=== PATIENT | male | born 1950 | race Caucasian/White ===

== ENCOUNTER 2016-08-09 09:02 | Inpatient (IN) | payer OTHER ==
[2016-08-09 11:01] LABS: % IMMATURE GRANULYOCYTES 0.2 % (0.0-1.1); ABSOLUTE IMMATURE GRANULOCYTES 0.02 10^3/uL (0.00-0.10); ADD DIFF? NO; ADD MORPH? NO; ADD SCAN? NO; ATYPICAL LYMPHOCYTE FLAG 0 (0-99); FRAGMENT RBC FLAG 0 (0-99); HEMATOCRIT 46.2 % (40.0-51.0); HEMOGLOBIN 15.8 g/dL (13.7-17.5); LEFT SHIFT FLG 0 (0-99); LIPEMIA HEMOLYSIS FLAG 90 (0-99); MEAN CELL HEMOGLOBIN 33.1 pg (27.9-34.1); MEAN CELL HEMOGLOBIN CONCENTR. 34.2 g/dL (32.4-36.7); MEAN CELL VOLUME 96.7 fL (81.5-99.8); MEAN PLATELET VOLUME 9.4 fL (8.7-11.7); PLATELET CLUMPS FLAG 0 (0-99); PLATELET COUNT 263 10^3/uL (150-400); RED BLOOD CELL COUNT 4.78 10^6/uL (4.40-6.38); RED CELL DISTRIBUTION WIDTH 12.7 % (11.5-15.2)
--- NOTE | 2016-08-09 11:05 | GHP ---
[f rep st] PREOP HISTORY AND PHYSICAL DATE OF ADMISSION: 08/14/2016 PROBLEM: Left hip arthritis. HISTORY OF PRESENT ILLNESS: The patient is a 66-year-old man admitted for a left total hip arthropl asty. He has had progressive pain in his left hip. At times, it is so painful it is difficult to w alk. He has been using Aleve, which is somewhat helpful. He complains of anterior hip pain and cedrick in pain. I did his right total hip arthroplasty in August 2014, and he has had a good result. PAST MEDICAL HISTORY: He has cardiac stents inserted in 2012. He was recently seen by Dr. Moses salcido. He has had a stress test within [address] Motta has cleared him for surgery. No histor y of DVT or hepatitis. He has sleep apnea and uses a CPAP machine. CURRENT MEDICATIONS: Amlodipine 5 mg per day. Lisinopril 10 mg per day. Atorvastatin 10 mg per da y. Lasix 20 mg p.r.n. for ankle swelling. He takes Plavix, but he stopped it in preparation for e surgery. ALLERGIES: Drug allergies: None. Metal allergy: None. Latex allergy: None. SOCIAL HISTORY: The patient is retired. He is . He stopped smoking cigarettes 40 years ago . He occasionally drinks alcohol. FAMILY HISTORY: Positive for cancer. PHYSICAL EXAMINATION: GENERAL: He is a healthy-appearing man. VITAL SIGNS: Height 5 feet 9 inches . Weight 220 pounds. BMI 32.5. EYES: Conjunctivae and sclerae are clear. Pupils are round and r eactive. MOUTH: Good oral hygiene. No loose teeth. CHEST: Clear. HEART: Regular rhythm. No m urmurs. EXTREMITIES: Pertinent findings limited to his left hip. He has full hip extension and 11 0 degrees of flexion. External rotation 20 degrees. Internal rotation 0 degrees. Abduction 30 deg vee. IMAGING: His films show degenerative arthritis of the left hip with cartilage space narrowing and p eripheral osteophytes. His right total hip looks excellent. IMPRESSION ON ADMISSION: 1. Left hip degenerative arthritis. He is prepared for a left total hip arthroplasty. 2. Two years status post successful right total hip arthroplasty. 3. History of coronary artery disease with stent insertion in 2012. 4. Treatment for hypertension and elevated cholesterol. 5. Sleep apnea. He will undergo a left total hip arthroplasty. The surgery has been described to him including the risks, complications, expectations, and recovery time. All his questions have been answered, and he consents to surgery. I have discussed with him the issues of dislocation, leg length inequality, i nfection, and revision surgery. There is a very, very small risk of sciatic nerve injury. I have a lso advised him that with bilateral procedures there can be mild [id number] differences during the recovery and even with the final result. All his questions have been answered. /[id number]/MODL
[2016-08-14] MEDS ORDERED: TRANEXAMIC ACID 2,000 MG in NS 100 ML IV ONE (06:00)
[2016-08-14] MEDS ORDERED: CHLORHEXIDINE GLUC HIBICLENS 118 ML BTL TP ONE (06:00)
[2016-08-14] MEDS ORDERED: ACETAMINOPHEN 325 MG TAB PO ONE (06:00)
[2016-08-14] MEDS ORDERED: FAMOTIDINE 20 MG TAB PO ONE (06:00)
[2016-08-14] MEDS ORDERED: ROPI/epiNEPH/KETOROLAC JOINT COCKTAIL IU ONE (06:00)
[2016-08-14] MEDS ORDERED: DEXAMETHASONE 4 MG/ML VIAL IVP ONE (06:00)
[2016-08-14] MEDS ORDERED: POVIDONE-IODINE 20 ML in SODIUM CL IRRIG SOLUTION 500 ML IRR ONE (06:00)
[2016-08-14] MEDS ORDERED: CEFAZOLIN 2 GM/DEXTR 100 ML IV ONE (06:00)
[2016-08-14] MEDS ORDERED: LIDOCAINE 1% 2 ML INJ ONE (06:05)
[2016-08-14] MEDS ORDERED: CEFAZOLIN 2 GM/DEXTROSE/100 ML BAG IV ONE (06:11)
[2016-08-14] MEDS ORDERED: DEXAMETHASONE 4 MG/ML VIAL ONE (06:11)
[2016-08-14] MEDS ORDERED: FAMOTIDINE 20 MG TAB ONE (06:11)
[2016-08-14] MEDS ORDERED: LIDOCAINE 1% 5 ML SDV ID PRN (06:18)
[2016-08-14] MEDS ORDERED: LR 1,000 ML IV ONE (06:18)
[2016-08-14] MEDS ORDERED: SKIN ADHESIVE (DERMABOND) 1 EACH TP ONE (06:36)
[2016-08-14] MEDS ORDERED: ceFAZolin 1 GM/5 ML SYR ONE (06:37)
[2016-08-14] MEDS ORDERED: fentaNYL 100 MCG/2 ML INJ ONE ×2 (07:00→09:03)
[2016-08-14] MEDS ORDERED: PROPOFOL/EMULSION 500 MG/50 ML BOTTLE IV ONE ×2 (07:04→07:55)
[2016-08-14] MEDS ORDERED: MIDAZOLAM 2 MG/2 ML VIAL ONE (07:04)
--- NOTE | 2016-08-14 08:41 | POSTOPPROG ---
Post Op Note Date of Operation: 08/14/16 Surgeon: Lincoln Esposito School Librarian: Venus/Davin Anesthesiologist: Raul Anesthesia: IV Sedation, Spinal Post-op Diagnosis: right hip arthritis Procedure: R GIGI Inf/Abcess present in the surg proc area at time of surgery?: No EBL: 100-500
[2016-08-14] MEDS ORDERED: METOCLOPRAMIDE 10 MG/2 ML VIAL IVP PRN (08:43)
[2016-08-14] MEDS ORDERED: ONDANSETRON 4 MG/2 ML VIAL IVP PRN (08:43)
[2016-08-14] MEDS ORDERED: BISACODYL 10 MG SUPP PR PRN (08:43)
[2016-08-14] MEDS ORDERED: NS 500 ML IV PRN (08:43)
[2016-08-14] MEDS ORDERED: PROMETHAZINE HCL 25 MG SUPPR PR PRN (08:43)
[2016-08-14] MEDS ORDERED: CYCLOBENZAPRINE 10 MG TAB PO PRN (08:43)
[2016-08-14] MEDS ORDERED: PHARMACY PAIN CONSULT 1 EA MISC PRN (08:43)
[2016-08-14] MEDS ORDERED: diphenhydrAMINE 25 MG CAP PO PRN (08:43)
[2016-08-14] MEDS ORDERED: ONDANSETRON DISINTEGRATING 4 MG TAB PO PRN (08:43)
[2016-08-14] MEDS ORDERED: DIPHENOXYLATE/ATROPINE LOMOTIL 1 TAB PO PRN (08:43)
[2016-08-14] MEDS ORDERED: traMADol 50 MG TAB PO PRN (08:43)
[2016-08-14] MEDS ORDERED: MAGNESIUM HYDROXIDE 30 ML UDCUP PO PRN (08:43)
[2016-08-14] MEDS ORDERED: POLYETHYLENE GLYCOL 3350 17 GM PKT PO PRN (08:43)
[2016-08-14] MEDS ORDERED: LACTULOSE 20 GM/30 ML UDCUP PO PRN (08:43)
[2016-08-14] MEDS ORDERED: TEMAZEPAM 15 MG CAP PO PRN (08:43)
--- NOTE | 2016-08-14 08:43 | POSTOPPROG ---
Post Op Note Date of Operation: 08/14/16 Surgeon: Lincoln Esposito Cycle Specialist: Eugene Anesthesiologist: Raul Anesthesia: IV Sedation, Spinal Post-op Diagnosis: corrected left hip arthritis Procedure: corrected left GIGI Inf/Abcess present in the surg proc area at time of surgery?: No EBL: 100-500
[2016-08-14] MEDS ORDERED: LR 1,000 ML IV SCH (09:00)
--- NOTE | 2016-08-14 09:32 | GOP ---
[f rep st] OPERATIVE REPORT DATE OF OPERATION: 08/14/2016 SURGEON: Lincoln Esposito MD NATURALIST: DOREEN Acuna RN ANESTHESIA: Combination of Marcaine, spinal, and IV sedation. ANESTHESIOLOGIST: Dr. Franco Carter. PREOPERATIVE DIAGNOSIS: Left hip severe arthritis. POSTOPERATIVE DIAGNOSIS: Left hip severe arthritis. PROCEDURE PERFORMED: Left total hip arthroplasty, Oxinium femoral head on highly cross-linked polye thylene cup. FINDINGS: ESTIMATED BLOOD LOSS: About 300 mL. The sponge and needle counts were correct on 2 occasions. I used a Sr and Nephew R3 hemispherical solid-backed acetabular shell with an outside diameter of 56 mm. The liner was a Sr and Nephew R3 flush highly cross-linked liner with an inside diameter of 36 mm. The femoral component was a standard offset Sr and Nephew Synergy stem in a size 13 a nd press-fit. The femoral head was a Sr and Nephew Oxinium head with a +4 mm neck length and a 3 6 mm outside diameter. Oskar Donovan and Kimberly Aguirre acted as surgical assistants. Their assistance was a medical necess ity. DESCRIPTION OF PROCEDURE: The patient was given 2 g of IV Ancef preoperatively within 60 minutes of surgery. He also received IV tranexamic acid at a dose of 20 mg/kg. [facility] and given spinal anesthesia with Marcaine by Dr. Carter. He was then placed supine and given IV sedation. A Magaña catheter was not used. A RITU stocking and SCD were applied to the nono perative leg. He was rolled to the right lateral decubitus position. The position was secured with the pegboard table attachment. An axillary roll was used and all pressure points were carefully pa dded. I was careful to lock his pelvis in a rigid vertical position. His perineum was isolated wit h plastic adhesive drapes. The left hip and left lower extremity were prepped with ChloraPrep. The y were draped free using sterile sheets, stockinette, and Ioban plastic drapes. The World [employer] Organization time-out was performed to verify the correct surgical side and the cor rect patient identity. The [place] time-out was also performed. I made a 5-inch straight oblique posterolateral hip skin incision. Subcutaneous tissue was sharply divided and hemostasis was obtained using electrocautery. His fascia daniela was identified and split along the axis of its fibers. I then curved posteriorly and proximally and split the fascia of the gluteus dave, and bluntly split the muscle fibers in line with their orientation. The Charnley s elf-retaining retractor was inserted. His sciatic nerve was located, partially exposed and protecte d throughout the procedure. The external rotators and the posterior hip capsule were divided as sep arate layers at the base of the femoral neck, tagged and reflected posteriorly. A smooth 8-inch Naif inmann pin was inserted vertically into the ilium superior to the acetabulum. An 8-inch drill bit w as inserted vertically into the greater trochanter and parallel to the first pin. The distance betw een the 2 was measured for leg length reference. His femoral head was dislocated posteriorly. Chastity re degenerative changes were present on the femoral head. The femoral neck was osteotomized at the appropriate level and inclination. I was careful to preserve all the posterior capsule and most of the anterior capsule. The remnant o f his damaged labrum was completely excised. I prepared the femur first. This allowed me to hand deicer element winder the amount of natural femoral neck anteversion . This, in turn, allowed me to later determine the correct amount of cup anteversion. He had appro ximately 10 or 12 degrees of femoral anteversion. The canal was opened laterally with a box chisel. I reamed and broached sequentially up to size 13. I used a size 13 broach as a trial stem. I was careful to lateralize adequately. Appropriate retractors were inserted to expose the acetabulum. The acetabulum was reamed sequential ly up to 55 mm. I selected a 56 mm Sr and Nephew R3 solid-backed hemispherical shell. This was tapped securely into place in the proper degree of inclination and anteversion. I used the transver se acetabular ligament and other acetabular bony landmarks to help me properly orient the cup. Supp lemental screw fixation was not necessary. I inserted a screw-in metal dome hole plug. I performed a series of trial reductions to determine length and stability. I concluded that the si ze 13 stem with a +4 mm neck length and a 36 mm head with a flush trial liner gave me the proper com bination of appropriate length and good anterior and posterior stability. I recognized that I was l engthening him a couple of millimeters; however, I felt like the +4 mm neck length gave me the amoun t of stability I wanted. The flush Sr and Nephew R3 highly cross-linked polyethylene liner was inserted and tapped securel y into place. I selected a Sr and Nephew Synergy stem in a size 13 with standard offset. This w as inserted press-fit and was very tight. I did 1 final trial reduction and confirmed that the +4 m m neck length with a 36 mm head was the proper combination. I selected a Sr and Nephew Oxinium h ead with an outside diameter of 36 mm and a neck length of +4 mm. This was tapped securely onto the clean trunnion. The acetabulum was irrigated and cleaned and the hip was reduced 1 final time. He had excellent anterior and posterior stability and appropriate length. 40 mL of the joint anesthetic cocktail was injected into the capsule, the deep musculature, and subc utaneous tissues around the skin edges. The joint was thoroughly irrigated 1 final time with a dilu te Betadine solution. His sciatic nerve was reinspected and looked unharmed. The external rotators and the posterior hip capsule were repaired in separate layers with #[address] ill holes in the greater trochanter. This provided a very strong posterior capsular and external ro tator repair. The fascia daniela was repaired first with several interrupted [id number] #2 FiberW darlene sutures followed by a running #2 barbed Ethicon Stratafix PDO suture. Subcutaneous tissues were closed with a running 0 barbed Ethicon Stratafix Monoderm suture. The skin was closed with a runni ng 3-0 barbed Ethicon Stratafix Monoderm subcuticular suture. The skin edges were reapproximated an d sealed with Dermabond glue. The wound was covered with a strip of Telfa, and everything was held in place with a piece of clear plastic Tegaderm. A long-leg RITU stocking and SCD were applied to his left lower extremity. He wore a stocking and SC D on the opposite leg during the procedure. An abduction pillow was placed between his knees. He w as awakened from anesthesia and rolled to the supine position on his [facility]. Taken to PACU in satisfactory condition. There were no recognized intraoperative complications. /[id number]/MODL
[2016-08-14] MEDS: TRANEXAMIC ACID 650 MG TAB PO SCH ×4 (09:44→21:14)
[2016-08-14] MEDS ORDERED: KETOROLAC 30 MG/1 ML SDV IVP PRN (11:22)
[2016-08-14] MEDS: ACETAMINOPHEN 325 MG TAB PO SCH ×3 (11:28→23:32)
[2016-08-14] MEDS: oxyCODONE IR 5 MG TAB PO PRN ×2 (11:29→20:42)
[2016-08-14] MEDS: ATORVASTATIN CALCIUM 10 MG TAB PO SCH (11:32)
[2016-08-14] MEDS: MULTIVITAMINS 1 EACH TAB PO SCH (11:33)
[2016-08-14] MEDS: SENNOSIDES/DOCUSATE SODIUM TAB PO SCH ×2 (11:33→20:11)
[2016-08-14] MEDS: FERROUS SULFATE 140 MG TAB.ER PO SCH (11:33)
[2016-08-14] MEDS: LISINOPRIL 40 MG TAB PO SCH (11:33)
[2016-08-14] MEDS: ceFAZolin 2 GM/DEXTROSE 100 ML IV SCH ×2 (14:00→21:14)
[2016-08-14] MEDS: ASPIRIN 325 MG TAB PO SCH (20:10)
[2016-08-14] MEDS: FAMOTIDINE 20 MG TAB PO SCH (20:11)
[2016-08-15 04:57] LABS: HEMOGLOBIN 12.5 g/dL (13.7-17.5)
[2016-08-15] MEDS: ACETAMINOPHEN 325 MG TAB PO SCH (05:10)
[2016-08-15 07:38] VITALS: BP 132/74; PULSE 78; RESP 14; TEMP 97.7; O2SAT 96
[2016-08-15] MEDS: ATORVASTATIN CALCIUM 10 MG TAB PO SCH (08:55)
[2016-08-15] MEDS: FERROUS SULFATE 140 MG TAB.ER PO SCH (08:55)
[2016-08-15] MEDS: ASPIRIN 325 MG TAB PO SCH (08:55)
[2016-08-15] MEDS: LISINOPRIL 40 MG TAB PO SCH (08:55)
[2016-08-15] MEDS: SENNOSIDES/DOCUSATE SODIUM TAB PO SCH (08:55)
[2016-08-15] MEDS: FAMOTIDINE 20 MG TAB PO SCH (08:57)
[2016-08-15] MEDS: MULTIVITAMINS 1 EACH TAB PO SCH (08:57)
[2016-08-15] MEDS: TRANEXAMIC ACID 650 MG TAB PO SCH (08:58)
--- NOTE | 2016-08-15 12:02 | SOAPPROG ---
SOAP Progress Note Assessment/Plan: Assessment: Jarrett left this morning before I could see him after surgery. He did well with PT and was anxious to go. Films look good. H/H is good. Plan: DC Outpatient PT 08/15/16 12:01 Objective: Vital Signs Temp Pulse Resp BP Pulse Ox 36.5 C 78 14 132/74 H 96 08/15/16 07:29 08/15/16 07:29 08/15/16 07:29 08/15/16 08:57 08/15/16 07:29 Laboratory Results 08/15/16 04:36 08/14/16 08/15/16 08/16/16 05:59 05:59 05:59 Intake Total 3485 Output Total 1075 Balance 2410 ICD10 Worksheet Patient Problems: Problems Problem Status Onset Osteoarthritis of left hip Acute Primary osteoarthritis of right hip Acute
--- NOTE | 2016-08-15 12:21 | GDS ---
[f rep st] DISCHARGE SUMMARY ADMISSION DIAGNOSIS: Left hip severe degenerative arthritis. DISCHARGE DIAGNOSIS: Left hip severe degenerative arthritis. OPERATION PERFORMED: 08/14/2016, a left total hip arthroplasty. POSTOPERATIVE COMPLICATIONS: None. CONDITION ON DISCHARGE: Improved. DESCRIPTION OF HOSPITAL COURSE: The patient was admitted to the hospital on the morning of surgery. His admission CBC was normal. The same day under a combination of Marcaine, spinal, and IV sedati on, he underwent a left total hip arthroplasty. Postoperatively, he was treated with multimodal DVT prophylaxis including aspirin and early mobilization. On the 1st postoperative day, his hemoglobin and hematocrit were 12.5 and 37.0. He made excellent progress with ambulation and by the time of d ischarge, he was afebrile and he was independent walking and doing stairs. DISPOSITION: The patient discharged to his home. DISCHARGE INSTRUCTIONS: He will have outpatient physical therapy. He may progress to full weightbe aring on the left as tolerated. Use an abduction pillow in bed for 3 weeks. Use RITU stockings for 1 week. He has prescriptions for tramadol and oxycodone for pain control. Continue aspirin 325 mg p.o. daily for 21 days. I will see him back in the office on August 31, 2016. If there any problems , he is to call me at the office. /[id number]/MODL
== END 2016-08-15 10:36 | disposition home or self-care (01) | DRG 470 ==
LOC: UNDOADMIN 09:02 → F3N 09:02
PROVIDERS: ADMIT Orthopaedic Surgery; ATTEND Orthopaedic Surgery
PROC: 0SRB0JZ Replacement of Left Hip Joint with Synthetic Substitute, Open Approach (ICD-10-PCS; principal; 2016-08-14 07:15)
DX: M16.12 Unilateral primary osteoarthritis, left hip (principal); Z95.5 Presence of coronary angioplasty implant and graft; G47.33 Obstructive sleep apnea (adult) (pediatric); Z96.641 Presence of right artificial hip joint; I10 Essential (primary) hypertension; E78.00 Pure hypercholesterolemia, unspecified
CPT/HCPCS: 97110-GP; 97116-GP; 97161-GP; 97165-GO; 97530-GP; G8978-GP-CJ; G8979-GP-CI; G8980-GP-CI; G8987-GO-CI; G8988-GO-CI; G8989-GO-CI; J0171; J0690; J1100; J1885; J2250; J2704; J2795; J3010

== ENCOUNTER → 2017-02-18 | Outpatient (CLI) | payer OTHER | LOC: FCPNEURO 20:00 | PROVIDERS: ATTEND Internal Medicine Sleep Medicine | DX: G47.33 Obstructive sleep apnea (adult) (pediatric) (principal); G47.61 Periodic limb movement disorder ==

== ENCOUNTER → 2017-08-10 | Outpatient (CLI) | payer OTHER | LOC: FIMAGING 08:42 | PROVIDERS: ATTEND Orthopaedic Surgery | DX: M25.561 Pain in right knee (principal); M23.221 Derangement of posterior horn of medial meniscus due to old tear or injury, right knee; M24.10 Other articular cartilage disorders, unspecified site; M25.461 Effusion, right knee; M71.21 Synovial cyst of popliteal space [Baker], right knee ==

== ENCOUNTER 2017-10-05 08:55 | Emergency (ER) | payer OTHER ==
--- NOTE | 2017-10-05 09:06 | CPEKG ---
Heart Rate: 62 RR Interval: 968 P-R Interval: 156 QRSD Interval: 86 QT Interval: 448 QTC Interval: 455 P [place]: 72 QRS [place]: 56 T Wave [place]: 53 EKG Severity - NORMAL ECG - EKG Impression: SINUS RHYTHM Electronically Signed By: Hardy Batista 06-Oct-2017 13:48:35
[2017-10-05] MEDS ORDERED: HYDROmorphONE/DILAUDID 2 MG/ML INJ IVP ONE (09:14)
[2017-10-05] MEDS ORDERED: LORazepam 2 MG/ML INJ IVP ONE (09:14)
[2017-10-05] MEDS ORDERED: NS 1,000 ML IV ONE (09:14)
--- NOTE | 2017-10-05 09:19 | EDPHY ---
H & P Stated Complaint: CP, nausea since last night Time Seen by Provider: 10/05/17 09:06 HPI/ROS: CHIEF COMPLAINT: Chest and abdominal pain HISTORY OF PRESENT ILLNESS: Patient is a 67-year-old man who is 3 days status post right knee arthroscopic and meniscus repair. He has a history of coronary artery disease with 3 stents in 2012. Also history of peptic ulcer disease and is on ranitidine. He states that yesterday he was constipated and at 1 point threw up. Overnight he had an episode of diarrhea. No fever. No blood. Around 4:00 a.m. He developed some lower abdominal pain that then radiated up to his chest and is now in his epigastric region. He is extremely tender to palpation in his epigastric region. He did have alcohol last night but denies being heavy drinker. He denies history of pancreatitis or hepatitis or biliary disease. His states he does also have a history of kidney stones. He denies flank pain or dysuria. No significant leg pain or swelling. REVIEW OF SYSTEMS: Constitutional: denies: chills, fever, recent illness, recent injury EENTM: denies: blurred vision, double vision, nose congestion Respiratory: denies: cough, shortness of breath Cardiac: See HPI denies: irregular heart rate, lightheadedness, palpitations Gastrointestinal/Abdominal: denies: blood streaked stools Genitourinary: denies: dysuria, frequency, hematuria, pain Musculoskeletal: denies: joint pain, muscle pain Skin: denies: lesions, rash, jaundice, bruising Neurological: denies: headache, numbness, paresthesia, tingling, dizziness, weakness Hematologic/Lymphatic: denies: blood clots, easy bleeding, easy bruising Immunologic/allergic: denies: HIV/AIDS, transplant EXAM: GENERAL: Moderate distress. HEAD: Atraumatic, normocephalic. EYES: Pupils equal round and reactive to light, extraocular movements intact, sclera anicteric, conjunctiva are normal. ENT: TMs normal, nares patent, oropharynx clear without exudates. Moist mucous membranes. NECK: Normal range of motion, supple without lymphadenopathy or JVD. LUNGS: Breath sounds clear to auscultation bilaterally and equal. No wheezes rales or rhonchi. HEART: Regular rate and rhythm without murmurs, rubs or gallops. ABDOMEN: Exquisite tenderness even to brushing of the skin of his epigastric region. normoactive bowel sounds. No masses appreciated. BACK: No CVA tenderness, no spinal tenderness, step-offs or deformities EXTREMITIES: Normal range of motion, no pitting or edema. No clubbing or cyanosis. NEUROLOGICAL: Cranial nerves II through XII grossly intact. Normal speech, normal gait. 5/5 strength, normal movement in all extremities, normal sensation PSYCH: Normal mood, normal affect. SKIN: Warm, dry, normal turgor, no visible rashes or lesions. Source: Patient Exam Limitations: No limitations - Medical/Surgical History Hx Asthma: No Hx Chronic Respiratory Disease: No Hx Diabetes: No Hx Cardiac Disease: Yes Hx Renal Disease: No Hx Cirrhosis: No Hx Alcoholism: No Hx HIV/AIDS: No Hx Splenectomy or Spleen Trauma: No Other PMH: R knee surgery 10/01/17, R rotator cuff 2013, cardiac stents x 2 2012 , sleep apnea, HTN, back surgery L 3 to5 multiiple orthopedic surgeries, head injuries 1979 - Family History Significant Family History: No pertinent family hx - Social History Smoking Status: Former smoker Alcohol Use: Occasionally Drug Use: None Constitutional: Initial Vital Signs Temperature (C) 36.7 C 10/05/17 08:59 Heart Rate 62 10/05/17 08:59 Respiratory Rate 18 10/05/17 08:59 Blood Pressure 145/87 H 10/05/17 08:59 O2 Sat (%) 99 10/05/17 08:59 O2 Delivery Mode Room Air O2 (L/minute) 2 Allergies/Adverse Reactions: No Known Allergies Allergy (Unverified 08/24/14 10:05) Home Medications: Medication Instructions Recorded Atorvastatin Calcium [Lipitor 10 10 mg PO DAILY 08/19/14 mg (*)] Lisinopril [Zestril 40 mg (*)] 40 mg PO DAILY 08/19/14 Ranitidine HCl [Zantac] 300 mg PO BID 08/19/14 amLODIPine BESYLATE [Norvasc 10 mg 10 mg PO DAILY 08/19/14 (*)] Multivitamins [Multivitamin (*)] 1 each PO DAILY 08/07/16 Medical Decision Making - Diagnostics EKG Interpretation: An EKG obtained and was read and documented in trace view. Please see trace view for full reading and report. Sinus rhythm, no acute ischemic changes Imaging Results: Imaging Impressions Abdomen CT 10/05/17 09:15 Impression: 1. Mild sigmoid diverticulosis without diverticulitis. 2. L2-L3 degenerative disk disease with marked intervertebral disk height loss. Results called to Dr. Meño Otto at 11:00 AM. Chest/Thorax CTA 10/05/17 09:15 Impression: Negative CT examination of the chest for acute pulmonary thromboembolic disease. Results called to Dr. Meño Otto at 11:00 AM at the time of the interpretation. Imaging: Discussed imaging studies w/ machine scallop cutter Radiologist ED Course/Re-evaluation: 11:00 a.m. we discussed the imaging and lab results. Patient and are very much reassured. They feel like he has food poisoning. They state that this is happened before. He is feeling completely better after being medicated here in the ER. They declined further workup or observation and are eager to go home. They have Zofran at home. I will give them a dose prior to discharge as well. His abdominal exam was now benign. We discussed indications for returning. Differential Diagnosis: Partial list of the Differential diagnosis considered include but were not limited to; gastritis, food poisoning, PE, dissection, pancreatitis, biliary disease and although unlikely based on the history and physical exam, I also considered perforation, ischemia, obstruction. I discussed these differential diagnoses and the plan with the patient as well as the usual and expected course. The patient understands that the diagnosis is provisional and that in medicine we are not always correct and that further workup is often warranted. Usual and customary warnings were given. All of the patient's questions were answered. The patient was instructed to return to the emergency department should the symptoms at all worsen or return, otherwise to followup with the physician as we discussed. - Data Points Laboratory Results: Laboratory Results 10/05/17 09:17 10/05/17 09:17 10/05/17 10/05/17 10/05/17 09:17 09:17 09:17 WBC 12.70 10^3/uL H 10^3/uL (3.80-9.50) RBC 4.50 10^6/uL 10^6/uL (4.40-6.38) Hgb 15.0 g/dL g/dL (13.7-17.5) Hct 43.5 % % (40.0-51.0) MCV 96.7 fL fL (81.5-99.8) MCH 33.3 pg pg (27.9-34.1) MCHC 34.5 g/dL g/dL (32.4-36.7) RDW 13.0 % % (11.5-15.2) Plt Count 238 10^3/uL 10^3/uL (150-400) MPV 9.0 fL fL (8.7-11.7) Neut % (Auto) 83.2 % H % (39.3-74.2) Lymph % (Auto) 6.7 % L % (15.0-45.0) [place] % (Auto) 9.0 % % (4.5-13.0) Eos % (Auto) 0.2 % L % (0.6-7.6) Baso % (Auto) 0.3 % % (0.3-1.7) Nucleat RBC Rel Count 0.0 % % (0.0-0.2) Absolute Neuts (auto) 10.58 10^3/uL H 10^3/uL (1.70-6.50) Absolute Lymphs (auto) 0.85 10^3/uL L 10^3/uL (1.00-3.00) Absolute Monos (auto) 1.14 10^3/uL H 10^3/uL (0.30-0.80) Absolute Eos (auto) 0.02 10^3/uL L 10^3/uL (0.03-0.40) Absolute Basos (auto) 0.04 10^3/uL 10^3/uL (0.02-0.10) Absolute Nucleated RBC 0.00 10^3/uL 10^3/uL (0-0.01) Immature Gran % 0.6 % % (0.0-1.1) Immature Gran # 0.07 10^3/uL 10^3/uL (0.00-0.10) PT 13.5 SEC SEC (12.0-15.0) INR 1.01 (0.83-1.16) APTT 23.9 SEC SEC (23.0-38.0) Sodium 141 mEq/L mEq/L (135-145) Potassium 4.5 mEq/L mEq/L (3.3-5.0) Chloride 102 mEq/L mEq/L (97-110) Carbon Dioxide 24 mEq/l mEq/l (22-31) Anion Gap 15 mEq/L mEq/L (8-16) BUN 17 mg/dL mg/dL (7-23) Creatinine 0.9 mg/dL mg/dL (0.7-1.3) Estimated GFR > 60 Glucose 113 mg/dL H mg/dL (70-100) Calcium 9.1 mg/dL mg/dL (8.5-10.4) Total Bilirubin 0.8 mg/dL mg/dL (0.1-1.4) Conjugated Bilirubin 0.4 mg/dL mg/dL (0.0-0.5) Unconjugated Bilirubin 0.4 mg/dL mg/dL (0.0-1.1) AST 37 IU/L IU/L (17-59) ALT 38 IU/L IU/L (21-72) Alkaline Phosphatase 85 IU/L IU/L (38-126) Troponin I < 0.012 ng/mL ng/mL (0.000-0.034) Total Protein 6.7 g/dL g/dL (6.3-8.2) Albumin 4.1 g/dL g/dL (3.5-5.0) Lipase 78 IU/L IU/L (23-300) Medications Given: Discontinued Medications Hydromorphone HCl (Dilaudid) 1 mg IVP EDNOW ONE Stop: 10/05/17 09:15 Last Admin: 10/05/17 09:21 Dose: 1 mg Sodium Chloride (Ns) 1,000 mls @ 0 mls/hr IV EDNOW ONE; Wide Open PRN Reason: Protocol Stop: 10/05/17 09:15 Last Admin: 10/05/17 09:21 Dose: 1,000 mls Lorazepam (Ativan Injection) 0.5 mg IVP EDNOW ONE Stop: 10/05/17 09:15 Last Admin: 10/05/17 09:21 Dose: 0.5 mg Ondansetron HCl (Zofran) 4 mg IVP EDNOW ONE Stop: 10/05/17 11:03 Last Admin: 10/05/17 11:09 Dose: 4 mg Departure - Departure Disposition: Home, Routine, Self-Care Clinical Impression: Abdominal pain Qualifiers: Abdominal location: epigastric Qualified Code(s): R10.13 - Epigastric pain Condition: Fair Instructions: Acute Abdominal Pain (ED) Referrals: Samira Blanco PA [Primary Care Provider] - As per Instructions
[2017-10-05 09:23] LABS: PLATELET COUNT 238 10^3/uL (150-400)
[2017-10-05 09:31] LABS: INR 1.01 (0.83-1.16); PROTIME(PATIENT) 13.5 SEC (12.0-15.0)
[2017-10-05] MEDS ORDERED: IOPAMIDOL (ISOVUE 370) 100 ML BTL IV ONE (09:42)
[2017-10-05 10:24] VITALS: BP 136/70
[2017-10-05] MEDS ORDERED: ONDANSETRON 4 MG/2 ML VIAL IVP ONE (11:02)
== END 2017-10-05 11:15 | disposition home or self-care (01) ==
DX: R10.13 Epigastric pain (principal); E86.9 Volume depletion, unspecified; I10 Essential (primary) hypertension; Z87.891 Personal history of nicotine dependence
CPT/HCPCS: 71275; 74177; 93005; 96361; 96374; 96375; 99285; J1170; J2060; J2405; Q9967

== ENCOUNTER → 2018-02-25 | Outpatient (CLI) | payer OTHER | LOC: BHFA 13:00 | PROVIDERS: ATTEND Internal Medicine Cardiovascular Disease | DX: Z01.818 Encounter for other preprocedural examination (principal); I25.10 Atherosclerotic heart disease of native coronary artery without angina pectoris | CPT/HCPCS: 78452; 93017; A9500; J2785 ==

== ENCOUNTER 2018-03-10 08:30 | Inpatient (IN) | payer OTHER ==
--- NOTE | 2018-03-18 08:25 | POSTANESTH ---
Post Anesthetic Evaluation Cardiovascular Status: Normal, Stable Respiratory Status: Normal, Stable Level of Consciousness/Mental Status: Can Participate in Eval, Moderately Sleepy Pain Control: Adequate, Prn Tx Ordered Nausea/Vomiting Control: Adequate, Prn Tx Ordered Complications Possibly Related to Anesthesia: None Noted (Pt moves all extremities to command.)
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
[2018-03-18] MEDS ORDERED: LR 1,000 ML IV ONE (09:03)
[2018-03-18] MEDS ORDERED: LIDOCAINE/EPINEPHRINE 0.5% 50 ML MDV ONE (09:12)
[2018-03-18] MEDS ORDERED: LIDOCAINE 0.5% 50 ML SDV ONE ×2 (09:15→12:47)
[2018-03-18] MEDS ORDERED: BUPIVACAINE/EPI 0.5% 30 ML SDV ONE (09:51)
[2018-03-18] MEDS ORDERED: BACITRACIN 50,000 UNITS/10 ML SYR IRR ONE (09:52)
[2018-03-18] MEDS ORDERED: VANCOMYCIN 1 GM VIAL ONE (09:52)
[2018-03-18] MEDS ORDERED: ceFAZolin 2 GM/DEXTROSE 100 ML IV ONE (10:39)
[2018-03-18] MEDS ORDERED: TRANEXAMIC ACID 1,000 MG in NS 100 ML IV ONE (10:39)
[2018-03-18] MEDS ORDERED: DEXAMETHASONE 4 MG/ML VIAL ONE (10:49)
[2018-03-18] MEDS ORDERED: ROCURONIUM 50 MG/5 ML VIAL ONE (10:49)
[2018-03-18] MEDS ORDERED: PROPOFOL/EMULSION 500 MG/50 ML BOTTLE IV ONE ×3 (10:49→12:26)
[2018-03-18] MEDS ORDERED: LIDOCAINE 2% 2 ML INJ ONE (10:49)
[2018-03-18] MEDS ORDERED: ePHEDrine SULFATE 25 MG/5 ML SYR ONE ×2 (11:39→12:07)
[2018-03-18] MEDS ORDERED: VASOPRESSIN 20 UNIT/ML VIAL ONE (12:13)
[2018-03-18] MEDS ORDERED: ONDANSETRON DISINTEGRATING 4 MG TAB PO PRN (13:05)
[2018-03-18] MEDS ORDERED: MAGNESIUM HYDROXIDE 30 ML UDCUP PO PRN (13:05)
[2018-03-18] MEDS ORDERED: ONDANSETRON 4 MG/2 ML VIAL IVP PRN (13:05)
[2018-03-18] MEDS ORDERED: BISACODYL 10 MG SUPP PR PRN (13:05)
[2018-03-18] MEDS ORDERED: POLYETHYLENE GLYCOL 3350 17 GM PKT PO PRN (13:05)
[2018-03-18] MEDS ORDERED: diphenhydrAMINE 25 MG CAP PO PRN (13:05)
[2018-03-18] MEDS ORDERED: LACTULOSE 20 GM/30 ML UDCUP PO PRN (13:05)
[2018-03-18] MEDS ORDERED: FAMOTIDINE 20 MG TAB PO PRN ×2 (13:05→21:00)
[2018-03-18] MEDS ORDERED: fentaNYL 100 MCG/2 ML INJ IVP PRN (13:16)
[2018-03-18] MEDS ORDERED: ALBUTEROL 3 ML DEYVIAL IH PRN (13:16)
[2018-03-18] MEDS ORDERED: NALOXONE HCL 0.4 MG/ML INJ IVP PRN (13:16)
[2018-03-18] MEDS ORDERED: PROMETHAZINE HCL 25 MG/ML INJ IVP PRN (13:16)
[2018-03-18] MEDS ORDERED: LR 500 ML IV PRN (13:16)
[2018-03-18] MEDS ORDERED: ACETAMINOPHEN 500 MG TAB PO PRN (13:16)
[2018-03-18] MEDS ORDERED: ONDANSETRON 4 MG/2 ML VIAL ONE (13:18)
--- NOTE | 2018-03-18 14:09 | SUROPNOTE ---
[facility] Operative Report - Surgery Date: 03/18/18 Pre-operative Diagnosis: Lumbar Spinal Stenosis Post-operative Diagnosis: Same Procedure: L1-4 Open Lumbar revision Laminectomy and Decompression Use of intra-operative fluoroscopy Use of a surgical microscope Surgeon: Lui Hampton MD Wharf Tender: Jane Woodson PA-C Anesthesia: General endotracheal anesthesia Findings: As expected lumbar spinal stenosis Estimated Blood Loss: 100mL Drains: Hemovac sewn to skin Specimens: None Complications: None Condition: Transferred to PACU in stable condition. Implants: None Indications: This patient was seen and examined by me and diagnosed with lumbar spinal stenosis. I have explained all options of treatment for the patient, and the patient has elected to proceed with operative management. I have explained all risks, benefits, and alternatives of the proposed procedure. The risks that we have discussed include , blindness, nerve damage, infection, dural tear, failure of surgery to alleviate pre-operative symptoms, and possible need for further operation. In addition to the aforementioned procedure, I discussed with the patient that other procedures may be indicated during the course of surgery that would be considered in the patients best interest. The patient expressed understanding of this. Pre-operative: The proposed incision site was marked in the pre-operative holding area by me. The patient was then taken to the operating room in stable condition. Following smooth induction of general anesthesia, the patient was positioned prone on a Cisco table in mild reverse Trendelenburg with all down surfaces well-padded. The patient was then prepped and draped in the usual sterile fashion. Pre- operative antibiotics were administered within one hour of the incision. A surgical timeout was performed, and all parties involved in the procedure were in agreement on the correct patient, location, and procedure to be performed. Approach: The proposed levels were identified using C-arm fluoroscopy and the skin was marked for the proposed incision. The skin was then incised sharply through the dermis. Electrocautery was used to dissect the subdermal fat layer down to fascia and to coagulate bleeding vessels. Secondary pause: Two Twan clamps were then placed on the spinous processes at both ends of the dissection. A lateral radiograph to identify the associated anatomy, and a small piece of bone from the associated spinous processes was removed for identification. A secondary spinal pause was then performed, and the level was confirmed with all parties participating in the operation. Decompression: All paraspinal muscles were dissected sub-periostally from the spinous processes and laminae. The dissection was then carried out to include the extent of decompression that was determined before surgery, with care being taken to preserve all facet capsules. The lateral pars was identified for all levels to be included in the proposed decompression. Using a combination of rongeur, cait, and Kerrison rongeurs, the spinous processes and laminae were removed at all levels to the subarticular lateral recess. Care was taken to leave a minimum of 8mm of bone from the lateral border of the pars at each decompressed level. The ligamentum flavum was resected at all levels. Additional care was taken to adequately decompress the lateral recess at all levels. At the cephalad and caudal vertebrae of the extent of the decompression , approximately 50% of the lamina was removed; at the remaining levels, a complete laminectomy was performed. At this time, a ball probe was used to probe all foraminae at the affected levels. Where necessary, a small Kerrison rongeur was used to decompress remaining bone and soft tissue so that all nerve roots would traverse freely through the foraminae. Of note, there was a substantial amount of scar tissue. Approximately 45 minutes of additional time was spent decomressing the L3 and L4 levels. The L5 level was deemed amply decompressed by preop imaging, especially with the amount of scar tissue present here. Closure: The surgical field was then copiously irrigated with sterile saline. Vancomycin powder was then applied to the surgical field. A small drain was placed deep to the fascia and brought out of the skin superior and laterally. The drain was then sewn to skin. #1 braided and absorbable interrupted sutures were used to repair the fascia. Then 2-0 monofilament interrupted sutures were used to repair the dermal layer, and a separate 3-0 monofilament suture was used to repair the subcutaneous layer in a running fashion. All sutures used were absorbable. Topical adhesive was then applied to the skin and allowed to dry. A sterile island dressing was applied over the surgical incision. A surgical count was performed before initiation of closure and following the procedure, and all were correct. I was present for all critical portions of the procedure. Neuromonitoring: SSEP, MEP and EMG were used throughout the case from incision until the beginning of closure. There were no significant changes throughout the case, and SSEP signals were at their pre-surgical baseline levels before surgical closure was initiated. Surgical microscope use: A surgical microscope was utilized throughout the decompressive portion of this case. This was deemed necessary for safe and accurate surgical decompression of affected nerve roots. office assistant: A surgical garment assembler was used throughout the case, and deemed necessary for safe neural retraction, hemostasis, and suction. Recovery: The patient was extubated uneventfully in the operating room. The patient was taken to the recovery room in stable condition. Sequential compression devices for VTE prophylaxis were applied to the patients lower extremities, and were ordered to be used while the patient was non-ambulatory. Chemical VTE prophylaxis was considered to be contraindicated for this patient because of the risk of bleeding near the epidural space. 22 mod Based on the amount of scar tissue and additional 45 minutes or more that was spent during the decompression, a 22 modifier will be added to the case. Postop Pt seen and evaluated in PACU, and was noted to be without deficits. David Hampton MD
[2018-03-18] MEDS: ACETAMINOPHEN 500 MG TAB PO SCH ×2 (15:52→21:08)
--- NOTE | 2018-03-18 16:05 | PDMN ---
Medical Necessity Medical [place] [facility] [place] Lamine[place]: CPT 16634 and 69111, meets IP criteria for s/p lumbar lami, L1-5 open lumbar lami revision w/ decompression, 67 yo, ASA III, hx CV disease, MELBA uses CPAP, recent cardiac cath.
[2018-03-18] MEDS: oxyCODONE IR 5 MG TAB PO PRN ×2 (16:41→18:09)
[2018-03-18] MEDS: ceFAZolin 2 GM/DEXTROSE 100 ML IV SCH (16:45)
[2018-03-18] MEDS: CYCLOBENZAPRINE 10 MG TAB PO PRN (19:23)
[2018-03-18] MEDS: SENNOSIDES/DOCUSATE SODIUM TAB PO SCH (21:09)
[2018-03-19] MEDS: ceFAZolin 2 GM/DEXTROSE 100 ML IV SCH (01:08)
[2018-03-19] MEDS: ACETAMINOPHEN 500 MG TAB PO SCH (05:30)
[2018-03-19] MEDS: oxyCODONE IR 5 MG TAB PO PRN (05:33)
[2018-03-19] MEDS: CYCLOBENZAPRINE 10 MG TAB PO PRN (05:33)
[2018-03-19] MEDS ORDERED: LEVOTHYROXINE 50 MCG TAB PO SCH (06:00)
[2018-03-19 07:48] VITALS: BP 103/52
[2018-03-19] MEDS ORDERED: LISINOPRIL 40 MG TAB PO SCH (09:00)
[2018-03-19] MEDS ORDERED: ATORVASTATIN CALCIUM 10 MG TAB PO SCH (09:00)
[2018-03-19] MEDS ORDERED: HYDROCHLOROTHIAZIDE 25 MG TAB PO SCH (09:00)
[2018-03-19] MEDS: SENNOSIDES/DOCUSATE SODIUM TAB PO SCH (09:19)
--- NOTE | 2018-03-19 11:10 | ASMTLACE ---
LACE Length of stay for Answers: 2 days current admission Acuity / Level of Answers: Yes Care: Did the patient have an inpatient admission? Comorbidities - select Answers: Coronary Artery Disease all that apply Opioid dependence / Chronic pain Other Notes: HTN; Hypothyroid # of Emergency department Answers: 1-2 visits in the last 6 months Score: 13 Date Signed: 03/19/2018 11:09 AM Electronically Signed By:ALEAH Sandra
--- NOTE | 2018-03-19 12:01 | ASMTCMCOM ---
CM Note CM Note Notes: Pt had planned surgery for lumbar spinal stenosis. PT rec home/outpatient. Pt medically stable for d/c, no CM d/c needs identified. Date Signed: 03/19/2018 12:00 PM Electronically Signed By:ALEAH Sandra
--- NOTE | 2018-03-19 12:36 | GPROG ---
I saw the patient this morning. He is doing quite well. PHYSICAL EXAMINATION: He has no sensory, motor, or vascular deficits. The drain is in place, and th e dressing is clean, dry, and intact and left in place. IMPRESSION: Postoperative day 1, status post L1 to L4 revision decompression. ASSESSMENT/PLAN: From my perspective, the patient done quite well from the operation. He notes that his legs feel like they have not felt in years, and his pain is virtually all gone. At this point, I am fine with the patient being discharged home. He has a drain in place with a moderate amount of output, so we can leave that in place, and I told him to come back to my clinic on Saturday and will ta ke it out then. All questions answered. Will get the patient some physical therapy today and then w ill move forward with discharge. /[id number]/MODL
== END 2018-03-19 11:33 | disposition home or self-care (01) | DRG 520 ==
LOC: F3N 08:30 → UNDOADMIN 08:30 → F3N 03-18 08:45
PROVIDERS: ADMIT Orthopaedic Surgery Orthopaedic Surgery of the Spine; ATTEND Orthopaedic Surgery Orthopaedic Surgery of the Spine
PROC: 00NY0ZZ Release Lumbar Spinal Cord, Open Approach (ICD-10-PCS; principal; 2018-03-18 10:15)
PROC: 4A1004G Monitoring of Central Nervous Electrical Activity, Intraoperative, Open Approach (ICD-10-PCS; principal; 2018-03-18 10:15)
DX: M48.061 Spinal stenosis, lumbar region without neurogenic claudication (principal); I10 Essential (primary) hypertension; G47.33 Obstructive sleep apnea (adult) (pediatric); K21.9 Gastro-esophageal reflux disease without esophagitis; M51.16 Intervertebral disc disorders with radiculopathy, lumbar region; Z23 Encounter for immunization; Z95.5 Presence of coronary angioplasty implant and graft
CPT/HCPCS: 97116-GP; 97161-GP; 97165-GO; G0008; G8978-GP-CI; G8979-GP-CI; G8980-GP-CI; G8987-GO-CI; G8988-GO-CI; G8989-GO-CI; J0690; J1100; J2270; J2405; J2704; J3370

== ENCOUNTER 2018-03-10 08:45 | Day surgery (SDC) | payer OTHER ==
[2018-03-10] MEDS ORDERED: FAMOTIDINE 20 MG TAB PO ONE (08:46)
[2018-03-10] MEDS ORDERED: DIAZEPAM 5 MG TAB PO ONE (08:46)
[2018-03-10] MEDS ORDERED: ASPIRIN EC 325 MG TAB PO ONE ×2 (08:46→08:59)
[2018-03-10] MEDS ORDERED: NS 1,000 ML IV ONE (08:46)
[2018-03-10] MEDS ORDERED: diphenhydrAMINE 25 MG CAP PO ONE ×2 (08:46→08:58)
[2018-03-10] MEDS ORDERED: FAMOTIDINE 20 MG TAB ONE (08:58)
[2018-03-10] MEDS ORDERED: DIAZEPAM 5 MG TAB ONE (08:59)
[2018-03-10] MEDS ORDERED: fentaNYL 100 MCG/2 ML INJ ONE (09:02)
[2018-03-10] MEDS ORDERED: MIDAZOLAM 2 MG/2 ML VIAL ONE (09:02)
[2018-03-10] MEDS ORDERED: LIDOCAINE 1% 300 MG/30 ML SDV ONE (09:02)
[2018-03-10] MEDS ORDERED: IOPAMIDOL (ISOVUE-370) 150 ML BTL IV ONE (09:03)
[2018-03-10 09:17] LABS: PLATELET COUNT 257 10^3/uL (150-400)
--- NOTE | 2018-03-10 09:20 | PDPROPOC ---
Sedation Plan of Care Sedation Plan of Care: mental status noted, patient educated of risks, benefits , alternatives, patient can tolerate sedation ASA Classification: ASA 2 Planned drugs: fentanyl, midazolam Mallampati Score: Class 2 Mallampati Reference Image: Patient passed 3-3-2 rule?: Yes
--- NOTE | 2018-03-10 09:20 | PDHPUP ---
History & Physical Update H&P update statement: This history and physical update is based on an assessment of the patient which was completed after admission or registration (within 24 hours), but prior to the surgery/procedure. H&P update: H&P reviewed & patient examined, no change in patient's condition since H&P completed
[2018-03-10 09:23] LABS: INR 0.96 (0.83-1.16)
[2018-03-10] MEDS ORDERED: CLOPIDOGREL BISULFATE 75 MG TAB ONE (09:23)
[2018-03-10] MEDS ORDERED: CLOPIDOGREL BISULFATE 75 MG TAB PO ONE (09:45)
[2018-03-10] MEDS ORDERED: HYDROCODONE/APAP 5/325 TAB PO PRN (10:04)
[2018-03-10] MEDS ORDERED: NITROGLYCERIN 0.4 MG BTL SL PRN (10:04)
[2018-03-10] MEDS ORDERED: ONDANSETRON 4 MG/2 ML VIAL IVP PRN (10:04)
[2018-03-10] MEDS ORDERED: ATROPINE SULFATE 1 MG/10 ML SYR IVP PRN (10:04)
[2018-03-10] MEDS ORDERED: OXYCODONE/APAP 5/325 TAB PO PRN (10:04)
--- NOTE | 2018-03-10 10:49 | CPIP ---
DATE OF PROCEDURE: 03/10/2018 INDICATION FOR PROCEDURE: Positive stress test. History of coronary artery disease. Preoperative f or surgical clearance. PROCEDURES: 1. Nonselective right groin sheathogram. 2. Bilateral selective coronary angiography. 3. Left heart catheterization. 4. Left Ventriculogram. 5. Right groin closure with 6-Zambian Angio-Seal. HISTORY: Briefly, this is a 67-year-old male with history of coronary artery disease. The patient w as scheduled for spinal surgery coming up in the next few months and underwent a stress test which sh owed a moderate defect in the inferior wall. Given these findings, patient consented for left heart catheterization. DESCRIPTION OF PROCEDURE: After informed consent was obtained, the patient was brought to [facility] where the right groin was prepped and draped in normal sterile fashion. Using lidocaine, a short 6-Zambian sheath in the right common femoral artery verified angiographically. A JL4 catheter was advanced to the left coronary artery. Images of the left coronary artery revealed normal left main. Left circumflex artery was a long vessel with a stent in its midportion, which wa s widely patent. Distal circumflex terminated to a bifurcating marginal artery which was patent. LA D was a long vessel that wraps around the apex. Of note, there was a stent in the medium-sized diago nal artery which appeared to be widely patent. Distal LAD distal diagonal artery appeared to be wide ly patent. After these images were obtained the JL4 catheter was removed. The JR4 catheter was adva nced to the right coronary artery. Images of the right coronary artery revealed normal ostial RCA, p roximal RCA had 20% to 30% disease. Mid RCA was healthy and free of disease. RPD and RPLS appeared to be healthy and free of disease. After these images were obtained the JR4 catheter was removed. T he pigtail catheter was advanced to the left ventricle. EDP was 15 mmHg. Left ventriculogram in the ANTONIO projection showed EF of 65% with no wall motion abnormalities. There was no pull-back gradient between the LV and the aorta. Pigtail catheter was removed Over the 0.035 wire. Right groin was yvonne sed with 6-Z[place] Angio-Seal. The patient tolerated the procedure well with no complications. IMPRESSION: 1. Patent stent in the mid left circumflex artery and diagonal artery with mild plaque disease in th e left anterior descending. 2. 20% to 30% proximal right coronary artery disease with patent flow in the RPD and RPLS. 3. Normal ejection fraction. PLAN: The patient's stress test was a false positive. He has no discernible high-grade coronary art chen disease at this time. The patient is cleared to undergo spinal surgery without further cardiac t esting. /[id number]/MODL
--- NOTE | 2018-03-13 09:05 | CPEKG ---
Test Reason : OPEN Blood Pressure : / mmHG Vent. Rate : 076 BPM Atrial Rate : 076 BPM P-R Int : 157 ms QRS Dur : 090 ms QT Int : 387 ms P-R-T Axes : 065 051 057 degrees QTc Int : 436 ms Sinus rhythm Abnormal R-wave progression, early transition Confirmed by Madhav Scales ([id number]) on 03/13/2018 9:04:42 AM Referred By: Confirmed By:Madhav Scales
== END 2018-03-10 13:42 | disposition home or self-care (01) ==
LOC: FCATH 08:45
PROVIDERS: ATTEND Internal Medicine Cardiovascular Disease
DX: R94.39 Abnormal result of other cardiovascular function study (principal); I25.10 Atherosclerotic heart disease of native coronary artery without angina pectoris; K21.9 Gastro-esophageal reflux disease without esophagitis; I10 Essential (primary) hypertension; E78.2 Mixed hyperlipidemia; E03.9 Hypothyroidism, unspecified; G47.30 Sleep apnea, unspecified; G89.29 Other chronic pain; Z79.82 Long term (current) use of aspirin; Z87.891 Personal history of nicotine dependence; Z96.642 Presence of left artificial hip joint
CPT/HCPCS: C1760; J1644; J2250; J3010; Q9967

== ENCOUNTER 2018-03-23 12:04 | Observation (INO) | payer OTHER ==
[2018-03-23] MEDS ORDERED: HYDROmorphONE/DILAUDID 2 MG/ML INJ IVP ONE ×2 (12:13→13:31)
--- NOTE | 2018-03-23 12:19 | EDPHY ---
H & P Stated Complaint: L sided CP suddenly this AM Time Seen by Provider: 03/23/18 12:07 HPI/ROS: CHIEF COMPLAINT: Left chest pain HISTORY OF PRESENT ILLNESS: 67-year-old male with CAD and recent lumbar surgery presents with left-sided chest pain. Onset of left-sided chest pain yesterday evening. Took hydrocodone with some relief. The pain has been mild until approximately 45 min prior to arrival, when the pain became severe. The pain increases with deep inspiration and with movement. Recent cardiac cath unremarkable, stents patent. No shortness of breath, fever or cough. REVIEW OF SYSTEMS: complete 10 point ROS reviewed and is negative except for the noted elements in the HPI - Medical/Surgical History Hx Asthma: No Hx Chronic Respiratory Disease: No Hx Diabetes: No Hx Cardiac Disease: Yes Hx Renal Disease: No Hx Cirrhosis: No Hx Alcoholism: No Hx HIV/AIDS: No Hx Splenectomy or Spleen Trauma: No Other PMH: R knee surgery 10/01/17, R rotator cuff 2013, cardiac stents x 2 2012 , sleep apnea, HTN, back surgery L 3 to5 multiiple orthopedic surgeries, head injuries 1979 - Social History Smoking Status: Former smoker - Physical Exam Exam: General Appearance: Alert, pleasant, appears in pain intermittently Eyes: Pupils equal and round, no conjunctival pallor or injection ENT, Mouth: Mucous membranes moist Neck: Normal inspection Respiratory: Lungs are clear to auscultation Cardiovascular: Regular rate and rhythm Gastrointestinal: Abdomen is soft and nontender Neurological: A&O, nonfocal, normal gait Skin: Warm and dry, no rash Extremities: Nontender, no pedal edema Psychiatric: Mood and affect normal Constitutional: Initial Vital Signs Temperature (C) 36.4 C 03/23/18 12:07 Heart Rate 93 03/23/18 12:07 Respiratory Rate 18 03/23/18 12:07 Blood Pressure 171/147 H 03/23/18 12:07 O2 Sat (%) 92 03/23/18 12:07 O2 Delivery Mode Room Air Allergies/Adverse Reactions: No Known Allergies Allergy (Verified 03/23/18 12:06) Home Medications: Medication Instructions Recorded Atorvastatin Calcium [Lipitor 10 10 mg PO DAILY 08/19/14 mg (*)] Lisinopril [Zestril 40 mg (*)] 40 mg PO DAILY 08/19/14 Ranitidine HCl [Zantac] 300 mg PO DAILY PRN 08/19/14 Aspirin [Aspirin 81mg (*)] 81 mg PO DAILY 03/05/18 Hydrochlorothiazide [HCTZ (*)] 25 mg PO DAILY 03/05/18 Levothyroxine [Synthroid 50 mcg 50 mcg PO DAILY06 03/05/18 (*)] Medical Decision Making - Diagnostics EKG Interpretation: EKG interpreted by me reveals normal sinus rhythm, rate 93, no ST or T segment changes. Interpretation: Normal EKG Imaging Results: Imaging Impressions Chest/Thorax CTA 03/23/18 12:16 Impression: 1. Moderate volume of acute thrombopulmonary embolic disease. 2. No evidence of right heart strain or saddle embolism. 3. Trace left pleural effusion and minimal left basilar atelectasis. Findings discussed with emergency department physician, Pratima Somers MD on March 23, 2018 at 1:20 p.m. Imaging: Discussed imaging studies w/ machine scallop cutter Radiologist, I viewed and interpreted images myself ED Course/Re-evaluation: This patient presents with acute left-sided chest pain after recent surgery. Concerning for acute pulmonary embolism. Dilaudid 0.5 mg IV given for pain control. Stat EKG reveals no evidence of ischemia or dysrhythmia. CT pulmonary angiogram ordered. CT pulmonary angiogram reveals acute pulmonary embolism bilaterally, moderate volume. Results discussed with the patient. Patient understands the risks and benefits of anticoagulation and agrees to initiate heparin. Heparin per the weight based protocol initiated. Multiple doses of IV Dilaudid required to control pain. Hospitalist service was consulted for admission. Differential Diagnosis: Differential diagnosis includes though it is not limited to pneumonia, pneumothorax, pulmonary embolism, aortic dissection, pericarditis, acute coronary syndrome. - Data Points Laboratory Results: Laboratory Results 03/23/18 12:18 03/23/18 12:18 03/23/18 03/23/18 03/23/18 12:18 12:18 12:18 WBC RBC Hgb POC Hgb 15.6 gm/dL gm/dL (13.7-17.5) Hct POC Hct 46 % % (40-51) MCV MCH MCHC RDW Plt Count MPV Neut % (Auto) Lymph % (Auto) [place] % (Auto) Eos % (Auto) Baso % (Auto) Nucleat RBC Rel Count Absolute Neuts (auto) Absolute Lymphs (auto) Absolute Monos (auto) Absolute Eos (auto) Absolute Basos (auto) Absolute Nucleated RBC Immature Gran % Seg Neutrophils % Band Neutrophils % Lymphocytes % Monocytes % Eosinophils % Basophils % Metamyelocytes % Myelocytes % Promyelocytes % Blast Cells % Immature Gran # Absolute Seg Neuts Absolute Band Neuts Absolute Lymphocytes Absolute Monocytes Absolute Eosinophils Absolute Basophils Absolute Metamyelocyte Absolute Myelocytes Absolute Promyelocytes Absolute Plasma Cells Nucleated RBCs Absolute Blast Cells Plasma Cells % Platelet Estimate Polychromasia Oval Macrocytes D-Dimer 5.49 ug/mLFEU H ug/mLFEU (0.00-0.50) POC Sodium 137 mEq/L mEq/L (135-145) Sodium 135 mEq/L mEq/L (135-145) POC Potassium 3.4 mEq/L mEq/L (3.3-5.0) Potassium 3.7 mEq/L mEq/L (3.3-5.0) POC Chloride 98 mEq/L mEq/L (97-110) Chloride 97 mEq/L mEq/L (97-110) Carbon Dioxide 23 mEq/l mEq/l (22-31) Anion Gap 15 mEq/L H mEq/L (6-14) POC BUN 12 mg/dL mg/dL (7-23) BUN 13 mg/dL mg/dL (7-23) Creatinine 0.9 mg/dL mg/dL (0.7-1.3) POC Creatinine 0.8 mg/dL mg/dL (0.7-1.3) Estimated GFR > 60 Glucose 95 mg/dL mg/dL (70-100) POC Glucose 95 mg/dL mg/dL (70-100) Calcium 9.0 mg/dL mg/dL (8.5-10.4) POC Troponin I NT-Pro-B Natriuret Pep 200 pg/mL H pg/mL (0-125) 03/23/18 03/23/18 12:18 12:16 WBC 13.44 10^3/uL H 10^3/uL (3.80-9.50) RBC 4.47 10^6/uL 10^6/uL (4.40-6.38) Hgb 14.7 g/dL g/dL (13.7-17.5) POC Hgb Hct 43.3 % % (40.0-51.0) POC Hct MCV 96.9 fL fL (81.5-99.8) MCH 32.9 pg pg (27.9-34.1) MCHC 33.9 g/dL g/dL (32.4-36.7) RDW 12.9 % % (11.5-15.2) Plt Count 267 10^3/uL 10^3/uL (150-400) MPV 8.7 fL fL (8.7-11.7) Neut % (Auto) 64.5 % % (39.3-74.2) Lymph % (Auto) 20.1 % % (15.0-45.0) [place] % (Auto) 11.3 % % (4.5-13.0) Eos % (Auto) 2.5 % % (0.6-7.6) Baso % (Auto) 0.4 % % (0.3-1.7) Nucleat RBC Rel Count 0.0 % % (0.0-0.2) Absolute Neuts (auto) 8.66 10^3/uL H 10^3/uL (1.70-6.50) Absolute Lymphs (auto) 2.70 10^3/uL 10^3/uL (1.00-3.00) Absolute Monos (auto) 1.52 10^3/uL H 10^3/uL (0.30-0.80) Absolute Eos (auto) 0.34 10^3/uL 10^3/uL (0.03-0.40) Absolute Basos (auto) 0.06 10^3/uL 10^3/uL (0.02-0.10) Absolute Nucleated RBC 0.00 10^3/uL 10^3/uL (0-0.01) Immature Gran % 1.2 % H % (0.0-1.1) Seg Neutrophils % 69.0 % % Band Neutrophils % 0.0 % % Lymphocytes % 20.0 % % Monocytes % 9.0 % % Eosinophils % 2.0 % % Basophils % 0.0 % % Metamyelocytes % 0.0 % % Myelocytes % 0.0 % % Promyelocytes % 0.0 % % Blast Cells % 0.0 % % Immature Gran # 0.16 10^3/uL H 10^3/uL (0.00-0.10) Absolute Seg Neuts 9.27 10^3/uL H 10^3/uL (1.70-6.50) Absolute Band Neuts 0.00 10^3/uL 10^3/uL (0.00-0.70) Absolute Lymphocytes 2.69 10^3/uL 10^3/uL (1.00-3.00) Absolute Monocytes 1.21 10^3/uL H 10^3/uL (0.30-0.80) Absolute Eosinophils 0.27 10^3/uL 10^3/uL (0.03-0.40) Absolute Basophils 0.00 10^3/uL L 10^3/uL (0.02-0.10) Absolute Metamyelocyte 0.00 10^3/mL 10^3/mL (0.00-0.00) Absolute Myelocytes 0.00 10^3/mL 10^3/mL (0.00-0.00) Absolute Promyelocytes 0.00 10^3/uL 10^3/uL (0.00-0.00) Absolute Plasma Cells 0.00 10^3/uL 10^3/uL (0.00-0.00) Nucleated RBCs 0 /100 WBC /100 WBC (0-0) Absolute Blast Cells 0.00 10^3/uL 10^3/uL (0.00-0.00) Plasma Cells % 0.0 % % Platelet Estimate ADEQUATE (ADEQ) Polychromasia 1+ H Oval Macrocytes 1+ H D-Dimer POC Sodium Sodium POC Potassium Potassium POC Chloride Chloride Carbon Dioxide Anion Gap POC BUN BUN Creatinine POC Creatinine Estimated GFR Glucose POC Glucose Calcium POC Troponin I 0.00 ng/mL ng/mL (0.00-0.08) NT-Pro-B Natriuret Pep Medications Given: Discontinued Medications Hydrocodone Bitart/Acetaminophen ([place] 5/325) 1 - 2 tab PO Q4HRS PRN PRN Reason: Pain, Moderate Able to Take PO Stop: 04/02/18 13:31 Last Admin: 03/23/18 15:05 Dose: 2 tab Heparin Sodium (Porcine) (Heparin Injection) 0 unit IVP EDNOW ONE Stop: 03/23/18 13:18 Last Admin: 03/23/18 13:35 Dose: 7,800 units Hydromorphone HCl (Dilaudid) 0.5 mg IVP EDNOW ONE Stop: 03/23/18 12:14 Last Admin: 03/23/18 12:16 Dose: 0.5 mg Hydromorphone HCl (Dilaudid) 0.5 mg IVP EDNOW ONE Stop: 03/23/18 13:32 Last Admin: 03/23/18 13:33 Dose: 0.5 mg Heparin Sodium (Porcine) (Heparin 50 Units/Ml (Premix)) 500 mls @ 0 mls/hr IV EDNOW ONE; Per Protocol PRN Reason: Protocol Stop: 03/23/18 13:18 Last Admin: 03/23/18 13:41 Dose: 500 mls Point of Care Test Results: Chemistry 03/23/18 03/23/18 12:18 12:16 POC Sodium 137 mEq/L mEq/L (135-145) POC Potassium 3.4 mEq/L mEq/L (3.3-5.0) POC Chloride 98 mEq/L mEq/L (97-110) POC BUN 12 mg/dL mg/dL (7-23) POC Creatinine 0.8 mg/dL mg/dL (0.7-1.3) POC Glucose 95 mg/dL mg/dL (70-100) POC Troponin I 0.00 ng/mL ng/mL (0.00-0.08) ISTAT H&H 03/23/18 12:18 POC Hgb 15.6 gm/dL gm/dL (13.7-17.5) POC Hct 46 % % (40-51) Departure - Departure Disposition: [facility] Inpatient Acute Clinical Impression: Pulmonary embolism Qualifiers: Pulmonary embolism type: other Chronicity: acute Acute cor pulmonale presence: without acute cor pulmonale Qualified Code(s): I26.99 - Other pulmonary embolism without acute cor pulmonale Condition: Serious
[2018-03-23 12:23] LABS: PLATELET COUNT 267 10^3/uL (150-400)
[2018-03-23] MEDS ORDERED: IOPAMIDOL (ISOVUE 370) 100 ML BTL IV ONE (12:48)
[2018-03-23] MEDS ORDERED: HEPARIN/DEXTROSE 500 ML IV ONE (13:17)
[2018-03-23] MEDS ORDERED: HEPARIN 10,000 UNIT/10 ML MDV (1,000 UNIT/ML) IVP ONE (13:17)
[2018-03-23] MEDS ORDERED: HYDROCODONE/APAP 5/325 TAB PO PRN (13:32)
[2018-03-23] MEDS ORDERED: ONDANSETRON DISINTEGRATING 4 MG TAB PO PRN (13:32)
[2018-03-23] MEDS ORDERED: ONDANSETRON 4 MG/2 ML VIAL IVP PRN (13:32)
[2018-03-23] MEDS ORDERED: ACETAMINOPHEN 325 MG TAB PO PRN (13:32)
[2018-03-23] MEDS ORDERED: HEPARIN 10,000 UNIT/10 ML MDV (1,000 UNIT/ML) IVP PRN (13:39)
[2018-03-23] MEDS ORDERED: HEPARIN/DEXTROSE 500 ML IV SCH (13:45)
--- NOTE | 2018-03-23 14:35 | CPEKG ---
Test Reason : OPEN Blood Pressure : / mmHG Vent. Rate : 093 BPM Atrial Rate : 093 BPM P-R Int : 144 ms QRS Dur : 085 ms QT Int : 362 ms P-R-T Axes : 064 054 057 degrees QTc Int : 451 ms Sinus rhythm Confirmed by Pratima Somers ([id number]) on 03/23/2018 2:35:29 PM Referred By: Confirmed By:Pratima Somers
--- NOTE | 2018-03-23 14:36 | PDGENHP ---
History and Physical - Chief Complaint L sided chest pain - History of Present Illness Jarrett Alcantara is a 67 yo M with a PMHx of CAD s/p 2 stents in 2012, HTN, recent lumbar surgery on 03/18 who presents to [facility] for L sided chest pain, found to have bilateral pulmonary embolism. He reports that he had acute onset of L sided chest pain in the middle of last night. It was non-radiating, described as sharp. He took Oxycodone and Zantac with some improvement in pain and went back to sleep. He states pain recurred this afternoon and was severe so he presented to ED. He reports some SOB, denies edema, palpitations, d/c, f/c, n/v , LH, dizziness, LOC. History Information - Allergies/Home Medication List Allergies/Adverse Reactions: No Known Allergies Allergy (Verified 03/23/18 12:06) Home Medications: Atorvastatin Calcium [Lipitor 10 mg (*)] 10 mg PO DAILY 08/19/14 [Last Taken 07:00] Lisinopril [Zestril 40 mg (*)] 40 mg PO DAILY 08/19/14 [Last Taken 03/18/18 07: 00] Ranitidine HCl [Zantac] 300 mg PO DAILY PRN 08/19/14 [Last Taken 03/17/18] Aspirin [Aspirin 81mg (*)] 81 mg PO DAILY 03/05/18 [Last Taken 03/10/18] Hydrochlorothiazide [HCTZ (*)] 25 mg PO DAILY 03/05/18 [Last Taken 03/17/18] Levothyroxine [Synthroid 50 mcg (*)] 50 mcg PO DAILY06 03/05/18 [Last Taken 07:00] I have personally reviewed and updated: family history, medical history, social history, surgical history - Past Medical History coronary artery disease, hypertension - Surgical History Reports: spinal surgery - Family History Positive for: non-pertinent - Social History Smoking Status: Former smoker Review of Systems Review of Systems: ROS: 10pt was reviewed & negative except for what was stated in HPI & below Physical Exam Physical Exam: Temp Pulse Resp BP Pulse Ox 37.0 C 92 20 155/86 H 93 03/23/18 14:24 03/23/18 14:24 03/23/18 14:24 03/23/18 14:24 03/23/18 14:24 Constitutional: no apparent distress Eyes: PERRL Ears, Nose, Mouth, Throat: moist mucous membranes Cardiovascular: regular rate and rhythym Respiratory: no respiratory distress, clear to auscultation Gastrointestinal: soft, non-tender abdomen Genitourinary: No dillon in urethra Skin: warm, normal color Musculoskeletal: full muscle strength Neurologic: AAOx3 Psychiatric: interacting appropriately Lab Data & Imaging Review 03/23/18 12:18 03/23/18 12:18 WBC 13.44 10^3/uL (3.80-9.50) H 03/23/18 12:18 RBC 4.47 10^6/uL (4.40-6.38) 03/23/18 12:18 Hgb 14.7 g/dL (13.7-17.5) 03/23/18 12:18 POC Hgb 15.6 gm/dL (13.7-17.5) 03/23/18 12:18 Hct 43.3 % (40.0-51.0) 03/23/18 12:18 POC Hct 46 % (40-51) 03/23/18 12:18 MCV 96.9 fL (81.5-99.8) 03/23/18 12:18 MCH 32.9 pg (27.9-34.1) 03/23/18 12:18 MCHC 33.9 g/dL (32.4-36.7) 03/23/18 12:18 RDW 12.9 % (11.5-15.2) 03/23/18 12:18 Plt Count 267 10^3/uL (150-400) 03/23/18 12:18 MPV 8.7 fL (8.7-11.7) 03/23/18 12:18 Neut % (Auto) 64.5 % (39.3-74.2) 03/23/18 12:18 Lymph % (Auto) 20.1 % (15.0-45.0) 03/23/18 12:18 [place] % (Auto) 11.3 % (4.5-13.0) 03/23/18 12:18 Eos % (Auto) 2.5 % (0.6-7.6) 03/23/18 12:18 Baso % (Auto) 0.4 % (0.3-1.7) 03/23/18 12:18 Nucleat RBC Rel Count 0.0 % (0.0-0.2) 03/23/18 12:18 Absolute Neuts (auto) 8.66 10^3/uL (1.70-6.50) H 03/23/18 12:18 Absolute Lymphs (auto) 2.70 10^3/uL (1.00-3.00) 03/23/18 12:18 Absolute Monos (auto) 1.52 10^3/uL (0.30-0.80) H 03/23/18 12:18 Absolute Eos (auto) 0.34 10^3/uL (0.03-0.40) 03/23/18 12:18 Absolute Basos (auto) 0.06 10^3/uL (0.02-0.10) 03/23/18 12:18 Absolute Nucleated RBC 0.00 10^3/uL (0-0.01) 03/23/18 12:18 Immature Gran % 1.2 % (0.0-1.1) H 03/23/18 12:18 Seg Neutrophils % 69.0 % 03/23/18 12:18 Band Neutrophils % 0.0 % 03/23/18 12:18 Lymphocytes % 20.0 % 03/23/18 12:18 Monocytes % 9.0 % 03/23/18 12:18 Eosinophils % 2.0 % 03/23/18 12:18 Basophils % 0.0 % 03/23/18 12:18 Metamyelocytes % 0.0 % 03/23/18 12:18 Myelocytes % 0.0 % 03/23/18 12:18 Promyelocytes % 0.0 % 03/23/18 12:18 Blast Cells % 0.0 % 03/23/18 12:18 Immature Gran # 0.16 10^3/uL (0.00-0.10) H 03/23/18 12:18 Absolute Seg Neuts 9.27 10^3/uL (1.70-6.50) H 03/23/18 12:18 Absolute Band Neuts 0.00 10^3/uL (0.00-0.70) 03/23/18 12:18 Absolute Lymphocytes 2.69 10^3/uL (1.00-3.00) 03/23/18 12:18 Absolute Monocytes 1.21 10^3/uL (0.30-0.80) H 03/23/18 12:18 Absolute Eosinophils 0.27 10^3/uL (0.03-0.40) 03/23/18 12:18 Absolute Basophils 0.00 10^3/uL (0.02-0.10) L 03/23/18 12:18 Absolute Metamyelocyte 0.00 10^3/mL (0.00-0.00) 03/23/18 12:18 Absolute Myelocytes 0.00 10^3/mL (0.00-0.00) 03/23/18 12:18 Absolute Promyelocytes 0.00 10^3/uL (0.00-0.00) 03/23/18 12:18 Absolute Plasma Cells 0.00 10^3/uL (0.00-0.00) 03/23/18 12:18 Nucleated RBCs 0 /100 WBC (0-0) 03/23/18 12:18 Absolute Blast Cells 0.00 10^3/uL (0.00-0.00) 03/23/18 12:18 Plasma Cells % 0.0 % 03/23/18 12:18 Platelet Estimate ADEQUATE (ADEQ) 03/23/18 12:18 Polychromasia 1+ H 03/23/18 12:18 Oval Macrocytes 1+ H 03/23/18 12:18 D-Dimer 5.49 ug/mLFEU (0.00-0.50) H 03/23/18 12:18 POC Sodium 137 mEq/L (135-145) 03/23/18 12:18 Sodium 135 mEq/L (135-145) 03/23/18 12:18 POC Potassium 3.4 mEq/L (3.3-5.0) 03/23/18 12:18 Potassium 3.7 mEq/L (3.3-5.0) 03/23/18 12:18 POC Chloride 98 mEq/L (97-110) 03/23/18 12:18 Chloride 97 mEq/L (97-110) 03/23/18 12:18 Carbon Dioxide 23 mEq/l (22-31) 03/23/18 12:18 Anion Gap 15 mEq/L (6-14) H 03/23/18 12:18 POC BUN 12 mg/dL (7-23) 03/23/18 12:18 BUN 13 mg/dL (7-23) 03/23/18 12:18 Creatinine 0.9 mg/dL (0.7-1.3) 03/23/18 12:18 POC Creatinine 0.8 mg/dL (0.7-1.3) 03/23/18 12:18 Estimated GFR > 60 03/23/18 12:18 Glucose 95 mg/dL (70-100) 03/23/18 12:18 POC Glucose 95 mg/dL (70-100) 03/23/18 12:18 Calcium 9.0 mg/dL (8.5-10.4) 03/23/18 12:18 POC Troponin I 0.00 ng/mL (0.00-0.08) 03/23/18 12:16 NT-Pro-B Natriuret Pep 200 pg/mL (0-125) H 03/23/18 12:18 Assessment & Plan Assessment: Pulmonary embolism (Acute) - Presents with L sided chest pain after recent surgery - D Dimer elevated on admission - CTA performed on admission shows moderate volume of acute thrombopulmonary embolic ds evidenced by segmental and subsegmental filling defects in RLL, LLL, and RML, no saddle embolism or intracardiac filling defect, no evidence of R Heart strain - Troponin negative, BNP mildly elevated on admission - HR, BP, 02 sats on RA WNL on admission - Started on Heparin gtt in ED, will continue overnight - Plan to transition to oral anticoagulant, Elaquis or Xarelto Leukocytosis - WBC 13.4 on admission, no L shift - Likely elevated in setting of PE - Continue to monitor HTN - BP WNL on admission - Continue home Lisinopril 40 mg, HCTZ 25 mg qd CAD s/p 2 stents 2012 - Trop negative on admission, EKG w/o acute ST-T wave changes - Continue home ASA 81 mg, Atorvastatin Recent Lumbar Surgery - OR on 03/18, drain removed on 02/18 - Ortho aware patient is admitted with PE FEN: Cardiac diet, IVF PRN PPx: SCDs, Heparin gtt Code: FULL Dispo: Admit to Observation, pending clinical course
[2018-03-23 15:03] LABS: PLATELET COUNT 241 10^3/uL (150-400)
[2018-03-23 15:13] LABS: INR 1.25 (0.83-1.16); PROTIME(PATIENT) 15.9 SEC (12.0-15.0)
[2018-03-23] MEDS: CYCLOBENZAPRINE 10 MG TAB PO PRN (19:20)
[2018-03-23] MEDS: HYDROmorphONE/DILAUDID 1 MG/ML INJ IVP PRN ×2 (19:22→23:46)
[2018-03-23] MEDS: oxyCODONE IR 5 MG TAB PO PRN (21:59)
[2018-03-23] MEDS ORDERED: MAGNESIUM HYDROXIDE 30 ML UDCUP PO PRN (23:22)
[2018-03-23] MEDS ORDERED: BISACODYL 10 MG SUPP PR PRN (23:22)
[2018-03-23] MEDS ORDERED: LACTULOSE 20 GM/30 ML UDCUP PO PRN (23:22)
[2018-03-23] MEDS ORDERED: POLYETHYLENE GLYCOL 3350 17 GM PKT PO PRN (23:22)
[2018-03-23] MEDS: SENNOSIDES/DOCUSATE SODIUM TAB PO SCH (23:47)
[2018-03-24] MEDS: HYDROmorphONE/DILAUDID 1 MG/ML INJ IVP PRN (05:12)
[2018-03-24] MEDS: CYCLOBENZAPRINE 10 MG TAB PO PRN (05:16)
[2018-03-24] MEDS: oxyCODONE IR 5 MG TAB PO PRN (07:51)
[2018-03-24] MEDS: SENNOSIDES/DOCUSATE SODIUM TAB PO SCH (07:52)
[2018-03-24] MEDS ORDERED: LEVOTHYROXINE 50 MCG TAB PO SCH (08:45)
[2018-03-24] MEDS ORDERED: ATORVASTATIN CALCIUM 10 MG TAB PO SCH (09:00)
[2018-03-24] MEDS ORDERED: FAMOTIDINE 20 MG TAB PO PRN (09:00)
[2018-03-24] MEDS ORDERED: ASPIRIN 81 MG CHEWABLE TAB PO SCH (09:00)
[2018-03-24] MEDS ORDERED: ACETAMINOPHEN 500 MG TAB PO SCH (09:15)
[2018-03-24] MEDS ORDERED: APIXABAN 5 MG TAB PO SCH (09:15)
[2018-03-24 12:06] VITALS: BP 111/69
--- NOTE | 2018-03-24 13:52 | PDDCSUM ---
Discharge Summary Discharge Summary: Date of Admission: 03/23/2018 Date of Discharge: 03/24/2018 Consult: N/A Procedure: CTA Chest F/u: PCP within 1-2 weeks Hospital Course Problem List: Pulmonary embolism (Acute) - Presents with L sided chest pain after recent surgery - D Dimer elevated on admission - CTA performed on admission shows moderate volume of acute thrombopulmonary embolic ds evidenced by segmental and subsegmental filling defects in RLL, LLL, and RML, no saddle embolism or intracardiac filling defect, no evidence of R Heart strain - Troponin negative, BNP mildly elevated on admission - HR, BP, 02 sats on RA WNL on admission - Started on Heparin gtt in ED, continued overnight - Transition to Elaquis today, 10 mg BID for 7 days, then 5 mg BID for total 3 months - Patient having L sided rib pain, started scheduled Tylenol, PRN Oxycodone with improvement this morning Constipation - No BM since Saturday - Started bowel regimen as IP - Recommended Senna/Colace BID, Miralax qd at home Leukocytosis - WBC 13.4 on admission, no L shift - Likely elevated in setting of PE - Continue to monitor HTN - BP WNL on admission - Continue home Lisinopril 40 mg, HCTZ 25 mg qd CAD s/p 2 stents 2012 - Trop negative on admission, EKG w/o acute ST-T wave changes - Continue home ASA 81 mg, Atorvastatin Recent Lumbar Surgery - OR on 03/18, drain removed on 02/18 - Ortho aware patient is admitted with PE Time spent on discharge was >35 minutes including >50% of time spent on patient education and counseling
== END 2018-03-24 14:02 | disposition home or self-care (01) ==
LOC: F3E 14:09
PROVIDERS: ADMIT Internal Medicine; ATTEND Internal Medicine
DX: I26.99 Other pulmonary embolism without acute cor pulmonale (principal); K59.00 Constipation, unspecified; D72.829 Elevated white blood cell count, unspecified; I10 Essential (primary) hypertension; Z98.890 Other specified postprocedural states; Z95.5 Presence of coronary angioplasty implant and graft; Z87.891 Personal history of nicotine dependence
CPT/HCPCS: 71275; 93005; 96374; 96375; 99285; G0378; J1170; J1644; Q9967; 82435-PO; 82565-PO; 82947-PO; 84132-PO; 84295-PO; 84484-PO; 84520-PO; 85014-PO; 85520-90